=== PATIENT | female | born 1950 | race Caucasian/White ===

== ENCOUNTER 2021-11-30 11:51 | Inpatient (IN) | payer OTHER ==
[~2021-11-30] VITALS: Ht 149.9 cm; Wt 52.9 kg
[2021-11-30 12:40] LABS: Calcium, Ionized (POC) 1.18 mmol/L (1.10-1.46); Chloride (POC) 98 mmol/L (98-108); Creatinine (POC) 0.9 mg/dL (0.6-1.0); Glucose (ISTAT POC) 132 mg/dL (70-99); Hemoglobin (POC) 15.6 g/dL (12.0-16.0); Sodium (POC) 135 mmol/L (135-148); Total CO2 (POC) 25 mmol/L (21-32)
[2021-11-30] MEDS ORDERED: ESTRADIOL42.5 GM VAG (12:42)
[2021-11-30] MEDS ORDERED: AMLODIPINE BESYL5 MG PO (12:42)
[2021-11-30] MEDS ORDERED: HYDCHL25 PO (12:42)
[2021-11-30] MEDS ORDERED: ALEN70 PO (12:42)
[2021-11-30 12:43] LABS: BASOPHILS ABSOLUTE AUTO 0.07 K/mm3 (0.00-0.23); BASOPHILS PERCENT AUTO 1 % (0-2); EOSINOPHILS ABSOLUTE AUTO 0.04 K/mm3 (0.00-0.68); EOSINOPHILS PERCENT AUTO 0 % (0-6); Hematocrit 41.4 % (33.0-51.0); Hemoglobin 14.2 g/dL (11.5-16.0); IMMATURE GRAN ABSOLUTE AUTO 0.03 K/mm3 (0.00-0.10); IMMATURE GRAN PERCENT AUTO 0 % (0-1); LYMPHOCYTES ABSOLUTE AUTO 2.46 K/mm3 (0.84-5.20); LYMPHOCYTES PERCENT AUTO 21 % (21-46); MONOCYTES PERCENT AUTO 10 % (4-13); Mean Corpuscular HGB 29.8 pg (26.0-34.0); Mean Corpuscular HGB Conc 34.3 g/dL (31.5-36.5); Mean Corpuscular Volume 87 fL (80-100); Mean Platelet Volume 11.3 fL (9.1-12.4); NEUTROPHILS ABSOLUTE AUTO 8.21 K/mm3 (1.96-9.15); NEUTROPHILS PERCENT AUTO 68 % (41-73); Platelet Count 307 K/mm3 (150-400); RDW Coefficient Variation 12.3 % (11.7-14.2); RDW Standard Deviation 39.5 fL (35.1-46.3); Red Blood Cell Count 4.77 M/mm3 (3.80-5.20); White Blood Cell Count 12.01 K/mm3 (4.00-11.30)
[2021-11-30 13:03] LABS: CHOL/HDL RATIO 3.1; Cholesterol 275 mg/dL (50-200); HDL Cholesterol 89 mg/dL (>39); LDL/HDL RATIO 1.8; Low Density Lipoprotein Chol 159 mg/dL (0-110); Triglycerides 133 mg/dL (30-160); Very Low Density Lipoprot Chol 26 mg/dL (6-32)
[2021-11-30 13:47] LABS: Alanine Aminotransfer (ALT/SGP 20 U/L (12-78); Albumin, Blood 4.1 g/dL (3.4-5.0); Alk Phos 109 U/L (50-136); Anion Gap 11 mmol/L (6-16); Aspartate Aminotrans (AST/SGOT 16 U/L (12-37); Bilirubin, Total 0.4 mg/dL (0.1-1.0); Blood Urea Nitrogen 13 mg/dL (8-24); Bun/Creatinine Ratio 14.5 (12.0-20.0); CO2, Blood 26 mmol/L (21-32); Calcium, Blood 9.4 mg/dL (8.5-10.1); Chloride, Blood 99 mmol/L (98-108); Globulin, Blood 4.1 g/dL (2.2-4.0); Glomerular Filtration Rate >60 (60-); Glucose, Blood 134 mg/dL (70-99); Sodium, Blood 136 mmol/L (136-145); Total Protein, Blood 8.2 g/dL (6.4-8.2)
[2021-11-30 13:59] LABS: Influenza A, PCR NEGATIVE (NEGATIVE); Influenza B, PCR NEGATIVE (NEGATIVE); Resp Syncytial Virus, PCR NEGATIVE (NEGATIVE); SARS-Cov-2 (COVID-19) PCR, MMC NEGATIVE (NEGATIVE)
--- NOTE | 2021-11-30 14:27 | NUR ---
[facility]. Sheath to right groin in place. Denies chest pain or discomfort. in and visiting with patient. Right groin site soft and nontender. no hematoma, no bleeding
--- NOTE | 2021-11-30 15:17 | NUR ---
ACT 190 at 15:15.
--- NOTE | 2021-11-30 15:43 | NUR ---
PATIENT TRANSFERRED TO ICU 2 VIA GURNEY AND MONITOR IN PLACE. PATIENT DENIES CHEST PAIN OR DISCOMFORT. SHEATH REMAINS IN PLACE TO RIGHT GROIN. SITE SOFT AND NONTENDER. NO BLEEDING. NO HEMATOMA. PULES TO RIGHT FOOT 2+. FULL PROCEDURAL REP[ORT GIVEN TO ANDRIY HILARIO. NO FURTHER QUESTIONS.
[2021-11-30] MEDS ORDERED: LOSA50 PO (16:08)
[2021-11-30] MEDS ORDERED: ASPI81CH PO (16:08)
[2021-11-30] MEDS ORDERED: RED YEAST RICE (16:10)
--- NOTE | 2021-11-30 18:10 | NUR ---
SUMMARY Assumed care of pt with Jayda HILARIO upon arrival to ICU 2 at 1535. Pt transferred from [facility] to ICU bed using slider sheet and 5 staff. Pt arrived on room air. SpO2 90% or greater. Sheath still in place to right groin. Site free of drainage, hematoma. Color, sensation, pulses, capillary refill equal BLE. Plan to pull sheath when ptt is less than 40. Pt received dose of Norvasc. Pt took medication this morning at home, Dr Rajput aware and ordered additional dose due to pt's high BP. Pt in sinus rhythm, rate 70s. Pt denies chest pain. Pt verbalizes understanding and is cooperative with activity restrictions with regard to right femoral artery sheath. Pt visiting with spouse at bedside.
--- NOTE | 2021-11-30 18:38 | NUR ---
PT RESTING IN BED. STABLE WITH CURRENT INTERVENTIONS. LEVOPHED 4-6 DEPENDING ON PT BEING AWAKE OR ASLEEP. VASOPRESSIN STILL OFF. TOLERATING VENTILATION, SET ON SPONTANEOUS PRESSURE SUPPORT 10/5, 30% FiO2. PT IS STILL JAUNDICE BUT BLE MOTTLING NOTABLY DECREASED. ABSENT BOWEL SOUNDS. PT WAS SEEN MOVING RIGHT FOREARM WELL EASILY FOLLOWING COMMANDS TO WIGGLE TOES, MOUTHING WORDS AND NODDING HEAD LATER IN THE SHIFT . ALTHOUGH, PT ALERTNESS IS STILL LABILE. RHINO ROCKET REMAINS IN PLACE. NO VISIBLE SIGNS OF CONTINUED BLEEDING AT THIS TIME. CT INTERVAL IS .24
--- NOTE | 2021-11-30 19:15 | NUR ---
ASSUMED PT CARE PT LYING IN BED ALERT AND ORIENTED X4; ABLE TO MAKE HER NEEDS KNOWN. SHEATH TO RIGHT GROIN IS STABLE; AWAITING PTT TO BE LESS THAN 40 PRIOR TO SHEATH REMOVAL. PT DENIES ANY NUMBNESS/TINGLING TO DISTAL EXTREMITIES. DENIES CHEST PAIN. NSR WITH HR 80'S. PT HYPERTENSIVE WITH SBP 140-150'S. SPO2 >90% ON ROOM AIR. CALL LIGHT WITHIN REACH AND PT IS ABLE TO MAKE NEEDS KNOWN.
--- NOTE | 2021-11-30 20:55 | NUR ---
SHEATH REMOVAL APPLIED SPO2 PROBE TO RIGHT GREAT TOE. EDUCATED PT ON WHAT TO EXPECT WITH MANUAL PRESSURE. FEM STOP WAS LEFT OUTSIDE ROOM IN CASE IT WAS NEEDED. REMOVED DRESSING AND SUTURES. APPLIED STERILE GLOVES, WENT AN INCH ABOVE INSERTION SITE, PULLED 6F SHEATH THAT WAS ALL INTACT, AND HELD MANUAL PRESSURE FOR 20 MINUTES. GOOD PULSES AND PERFUSION TO DISTAL EXTREMITY. PT TOLERATED WELL WITH NO VAGALING. HR REMAINED 70-80'S THE ENTIRE TIME. PT WAS MEDICATED WITH HYDRALAZINE PRIOR TO REMOVAL SECONDARY TO SBP >140 PER ORDERS. PT'S SBP CURRENTLY 107. WILL CONTINUE TO MONITOR. SITE REMAINS STABLE WITH NO OOZING OR SIGNS OF HEMATOMA/BLEEDING EVIDENCE BY SOFT, NON-TENDER TISSUE AROUND SITE. PT EDUCATED ON REMAINING SUPINE AND FLAT FOR ANOTHER 6 HOURS.
--- NOTE | 2021-11-30 21:11 | NUR ---
HYPOTENSIVE EPISODE CALL MADE TO DR. ARTEAGA SECONDARY TO SYSTOLIC BP IN THE 60'S POST SHEATH REMOVAL. PT WAS GIVEN 10MG OF HYDRALAZINE PER ORDERS PRIOR TO SHEATH REMOVAL SECONDARY TO SBP >140. PT IS COMPLETELY ALERT AND ORIENTED AND DENIES ANY DIZZINESS. SITE REMAINS STABLE WITH NO SIGNS OF BLEEDING; SOFT, NON-TENDER. DISTAL PULSES REMAIN STRONG. PT DENIES ANY BACK PAIN AT THIS TIME. ORDERS TO RECHECK BP IN 10 MINUTES; IF STILL LOW, CALL BACK AND NEW ORDERS FOR FLUIDS WILL BE INITIATED.
--- NOTE | 2021-11-30 21:30 | NUR ---
NEW ORDERS RETURNED CALL TO DR. ARTEAGA INFORMING OF NEW SBP IN THE 90'S WITH MAP'S >60. NEW ORDERS FOR NORMAL SALINE AT 200ML/HR X3 HOURS. PT STILL ALERT AND TALKING; DENIES DIZZINESS, BUT C/O NAUSEA. NEW ORDERS FOR ZOFRAN 4MG Q6HR PRN. HYDRALAZINE DISCONTINUED.
[2021-12-01 03:37] LABS: Hematocrit 39.2 % (33.0-51.0); Hemoglobin 13.4 g/dL (11.5-16.0); Mean Corpuscular HGB Conc 34.2 g/dL (31.5-36.5); Mean Corpuscular Volume 88 fL (80-100); Mean Platelet Volume 11.3 fL (9.1-12.4); Platelet Count 209 K/mm3 (150-400); RDW Coefficient Variation 12.4 % (11.7-14.2); RDW Standard Deviation 40.1 fL (35.1-46.3); Red Blood Cell Count 4.46 M/mm3 (3.80-5.20); White Blood Cell Count 9.33 K/mm3 (4.00-11.30)
[2021-12-01 04:16] LABS: Anion Gap 8 mmol/L (6-16); Blood Urea Nitrogen 13 mg/dL (8-24); Bun/Creatinine Ratio 14.7 (12.0-20.0); CO2, Blood 25 mmol/L (21-32); Calcium, Blood 8.6 mg/dL (8.5-10.1); Chloride, Blood 101 mmol/L (98-108); Creatinine, Blood 0.89 mg/dL (0.40-1.00); Glomerular Filtration Rate >60 (60-); Glucose, Blood 103 mg/dL (70-99); Potassium, Blood 3.5 mmol/L (3.5-5.5); Sodium, Blood 134 mmol/L (136-145)
--- NOTE | 2021-12-01 04:57 | NUR ---
END OF SHIFT SUMMARY NO SIGNIFICANT CHANGES NOTED THIS SHIFT. PT UP TO COMMODE AT 0230 TO VOID. SITE REMAINED STABLE WITH NO OOZING OR SIGNS OF BLEEDING. SITE REMAINS SOFT, NON-TENDER. DISTAL PULSES REMAIN STRONG WITH GOOD CAP REFILL AND COLOR. PT DENIES ANY NUMBNESS/TINGLING TO DISTAL EXTREMITIES. PT DENIES CHEST PAIN OR DISCOMFORT AT THIS TIME. NSR WITH HR 80-90'S. BP'S HAVE REMAINED SOFT THIS SHIFT, BUT STABLE; SEE FLOWSHEET. PT IS ABLE TO REPOSITION SELF AT THIS TIME. CALL LIGHT IS WITHIN REACH AND SHE IS ABLE TO MAKE NEEDS KNOWN. WILL CONTINUE TO MONITOR UNTIL REPORT IS HANDED OFF TO ONCOMING RN.
--- NOTE | 2021-12-01 06:57 | NUR ---
CALL MADE OUT TO DR. ARTEAGA PT'S BP'S REMAIN LOW. NEW ORDERS TO HOLD MORNING AMLODIPINE AND ORETIC, WELL TO FINISH OFF 1L BAG OF NS.
--- NOTE | 2021-12-01 12:46 | NUR ---
REASSESSMENT PT REMAINS ALERT AND ORIENTED. HER DIASTOLIC AND MAP WERE LOW THIS MORNING SO SHE RECEIVED SOME IV FLUIDS AND HER BP RESPONDED WELL TO IT. PT DENIES ANY COMPLAINTS OF DIZZINESS WITH THE HYPOTENSION. HER LUGNS ARE CLEAR, RA. SR. R RADIAL SITE HAS A BRUISE, BUT IT IS SOFT AND UNCHANGED FROM THIS MORNING. R GROIN SITE IS C/D/I, SOFT WITHOUT HEMATOMA. PT IS GETTING UP AND DOWN TO THE COMMODE WITHOUT DIFFICULTY. CONTINUING TO MONITOR.
[2021-12-01] MEDS ORDERED: TICA90TA PO (17:02)
--- NOTE | 2021-12-01 17:32 | NUR ---
PT CONTINUES TO DO WELL. DENIES CHEST PAIN. ACCESS SITES ARE C/D/I AND SOFT. DR. GOMEZ CAME BY AND DECIDED TO DISCHARGE PT. IV SITES DC'D WTIHOUT PROBLEM. DISCHARGE INSTRUCTIONS GIVEN. PT USES [facility], WHICH IS CLOSED AND CLOSED TOMORROW. CALLED [facility] BUT THEY WON'T BE ABLE TO FILL PT'S SCRIPT TONIGHT. TAKED WITH PT AND DR. Chawla. PLAN IS TO GIVE PT HER EVENING DOSE OF [place] E[facility]LY, BEFORE SHE LEAVES AND SEND SCRIPT TO [facility] FOR PT TO CHILD CARE NURSE TOMORROW. PT VERBALIZES UDNERSTANDING OF PLAN. [facility] FOR [facility]LLOW UP APPOINTMENT. PT ABLE TOD RESS INDEPENDENTLY. PT DC'D VIA PRIVATE VEHICLE WITH HER .
== END 2021-12-01 17:30 | disposition home or self-care (01) | DRG 247 ==
LOC: ER 11:51 → ICUW 12:48 → ICUE 14:35
PROVIDERS: Emergency Medicine; Physician Assistant; ADMIT Internal Medicine Interventional Cardiology
PROC: 027034Z Dilation of Coronary Artery, One Artery with Drug-eluting Intraluminal Device, Percutaneous Approach (ICD-10-PCS; principal; 2021-11-30)
PROC: 4A023N7 Measurement of Cardiac Sampling and Pressure, Left Heart, Percutaneous Approach (ICD-10-PCS; 2021-11-30)
PROC: B2111ZZ Fluoroscopy of Multiple Coronary Arteries using Low Osmolar Contrast (ICD-10-PCS; 2021-11-30)
PROC: B41DYZZ Fluoroscopy of Aorta and Bilateral Lower Extremity Arteries using Other Contrast (ICD-10-PCS; 2021-11-30)
DX: I21.19 ST elevation (STEMI) myocardial infarction involving other coronary artery of inferior wall (principal); I25.10 Atherosclerotic heart disease of native coronary artery without angina pectoris; I10 Essential (primary) hypertension; E78.5 Hyperlipidemia, unspecified; I70.0 Atherosclerosis of aorta; I70.203 Unspecified atherosclerosis of native arteries of extremities, bilateral legs; Z88.8 Allergy status to other drugs, medicaments and biological substances; Z79.899 Other long term (current) drug therapy; Z20.822 Contact with and (suspected) exposure to COVID-19
CPT/HCPCS: 0241U; 36415; 71045; 76937; 80047; 80048; 80053; 80061; 84484; 85014; 85025; 85027; 85347; 85730; 86850; 86900; 86901; 93005; 93010; 93458; 99152; 99153; 99285-25; A9270; C1725; C1769; C1874; C1887; C1894; C9606; J0360; J0461; J1644; J2250; J2405; J3010; J7030; Q9967

== ENCOUNTER 2023-04-01 06:07 | Day surgery (SDC) | payer OTHER ==
[~2023-04-01] VITALS: Ht 147.3 cm; Wt 63.1 kg
[2023-04-01] VITALS (9 sets, daily range): BP systolic 90–172; BP diastolic 36–68
[~2023-04-01 06:07] MED LIST: ALEN70 PO; AMLODIPINE BESYL5 MG PO; ASPI81CH PO; ATEN25 PO; ESTRADIOL42.5 GM VAG; HYDCHL25 PO; LOSA50 PO; METAMUCIL POWD798 GM PO; MULVITA PO; RED YEAST RICE; REPATHA SU140 MG/1 M SC; TICA90TA PO; TRIDERM28.4 GM TOP
[2023-04-01] MEDS ORDERED: CHLO25B PO (06:24)
--- NOTE | 2023-04-01 07:24 | NUR ---
DR SANON AT BEDSIDE EXAMINING PATIENT'S RASH.
--- NOTE | 2023-04-01 09:32 | NUR ---
DISCHARGE NOTE Discharge instructions reviewed with patient. Patient verbalizes understanding. Copy given to patient to take home.Lungs clear T/O to Auscultation. Discharged via wheelchair to private car for ride home.
== END 2023-04-01 10:00 | disposition home or self-care (01) ==
LOC: ORSCMMR 06:07 → ORD 07:30 → ORSCMMR 07:30
PROVIDERS: Surgery
PROC: 06BY0ZC Excision of Hemorrhoidal Plexus, Open Approach (ICD-10-PCS; principal; 2023-04-01 07:30)
DX: K64.4 Residual hemorrhoidal skin tags (principal); I10 Essential (primary) hypertension; I25.10 Atherosclerotic heart disease of native coronary artery without angina pectoris; I25.2 Old myocardial infarction; Z79.899 Other long term (current) drug therapy; Z87.891 Personal history of nicotine dependence
CPT/HCPCS: 88304; A9270; J0330; J1100; J2250; J2405; J2704; J2795; J3010; J7120

== ENCOUNTER → 2025-04-05 | Outpatient (CLI) | payer OTHER ==
[~2025-04-05] MED LIST changes: +CHLO25B PO
[2025-04-05 15:47] LABS: Calcium, Urine <5.0 mg/dL (< 17.5); Calcium, Urine Calculation Unable to Calculate mg/24hrs (42.0-353.0)
== END | disposition home or self-care (01) ==
LOC: LAB SHORT 09:22 → LAB 09:22
PROVIDERS: Internal Medicine Endocrinology, Diabetes & Metabolism
DX: M81.0 Age-related osteoporosis without current pathological fracture (principal)
CPT/HCPCS: 81050; 82340